=== PATIENT | male | born 1975 | race Caucasian/White ===

== ENCOUNTER 2022-05-26 07:53 | Emergency (ER) | payer SELFPAY ==
[~2022-05-26] VITALS: Ht 167.6 cm; Wt 80.0 kg
[2022-05-26 09:15] VITALS: BP 130/85
[2022-05-26] MEDS ORDERED: NEBI5TAB3 MT (09:53)
== END 2022-05-26 10:30 | disposition home or self-care (01) ==
LOC: ER 07:53
DX: I10 Essential (primary) hypertension (principal); Z76.0 Encounter for issue of repeat prescription
CPT/HCPCS: 99283